=== PATIENT | female | born 1950 | race Caucasian/White ===

== ENCOUNTER 2017-02-02 17:00 | Observation (INO) | payer MEDICAID ==
[~2017-02-02] VITALS: Ht 167.6 cm; Wt 95.5 kg
[~2017-02-02 17:00] MED LIST: AMOXICILLIN 50500 MG PO; CATAPRES0.2 MG PO; COUMADIN 2MG2 MG/TAB PO; CYMBALTA 60MG60 MG; DOXYCYCLINE 10100 MG PO; GLUCOPHAGE1000 MG PO; LOPRESSOR 225 MG/TAB PO; OXYCONTIN 80MG80 MG PO; PRIL40 PO; PRINZIDE 12.5 M1 TA1 PO; ROXICODONE30 MG PO; VITAMIN D 1001000 IU PO; XANAX 0.5MG0.5 MG PO
[2017-02-02 18:14] VITALS: BP 154/59; PULSE 68; TEMP 98
[2017-02-02] MEDS ORDERED: DICLOXACILLIN500 MG PO ×2 (18:25)
[2017-02-02] MEDS ORDERED: LOPRESSOR 550 MG/TAB PO (18:35)
[2017-02-02] MEDS ORDERED: OXYCONTIN30 MG PO (18:37)
[2017-02-02] MEDS ORDERED: OXYCONTIN 80MG80 MG PO (18:40)
[2017-02-02 20:26] VITALS: BP 162/68; PULSE 80; TEMP 98.3
[2017-02-03 00:03] VITALS: BP 165/57; PULSE 63; TEMP 97.9
[2017-02-03 04:18] VITALS: BP 158/58; PULSE 64; TEMP 98.1
[2017-02-03 08:21] VITALS: BP 157/63; PULSE 77; TEMP 98.8
[2017-02-03 10:19] LABS: INR 1.9 (0.8-3.0); PROTHROMBIN TIME 21.4 SECONDS (9.7-12.8)
[2017-02-03 10:24] LABS: BASO % 0.2 % (0.0-2.0); EOS # 0.1 (0.0-0.7); EOS % 0.8 % (0-4.0); GRAN # 7.9 (1.4-6.5); GRAN % 78.2 % (42.2-75.2); HEMATOCRIT 46.9 % (37.0-47.0); LYMPH # 1.6 (1.2-3.4); LYMPH % 16.3 % (20.0-51.0); MEAN CELL VOLUME 91 fl (80.0-100.0); MEAN CORPUSCULAR HEMOGLOBIN 31 pg (27.0-31.0); MEAN CORPUSCULAR HGB CONC 34 g/dl (33.0-37.0); MEAN PLATELET VOLUME 8.8 fl (7.4-10.4); MONO # 0.4 (0.1-0.6); PLATELET COUNT 186 K/mm3 (130-400); RED BLOOD COUNT 5.15 M/mm3 (4.10-5.30); REDCELL DISTRIBUTION WIDTH-CV 12.6 % (11.5-14.5)
[2017-02-03 10:26] LABS: CALCIUM 9.7 mg/dL (8.4-10.2); CREATININE, serum 0.56 mg/dL (0.52-1.25); POTASSIUM 3.2 mmol/L (3.4-5.0)
[2017-02-03 10:37] LABS: TROPONIN-I 0.016 ng/mL (0.000-0.034)
[2017-02-03] MEDS ORDERED: PROCARDIA XL 6060 MG PO (12:12)
[2017-02-03] MEDS ORDERED: ASPIRIN 81M81 MG/TA2 PO (12:12)
[2017-02-03] MEDS ORDERED: HCTZ12.5TAB PO (12:13)
[2017-02-03] MEDS ORDERED: PRINIVIL20 MG PO (12:13)
[2017-02-03] MEDS ORDERED: PRINZIDE 12.5 M1 TA1 PO (12:48)
== END 2017-02-03 13:11 | disposition home or self-care (01) ==
LOC: MEDICAL 17:00
PROVIDERS: Internal Medicine Cardiovascular Disease; Physician Assistant
DX: I20.0 Unstable angina (principal); I10 Essential (primary) hypertension; E87.6 Hypokalemia; E11.9 Type 2 diabetes mellitus without complications; J44.9 Chronic obstructive pulmonary disease, unspecified; F41.8 Other specified anxiety disorders; E66.9 Obesity, unspecified; K21.9 Gastro-esophageal reflux disease without esophagitis; F17.210 Nicotine dependence, cigarettes, uncomplicated; I48.2 Chronic atrial fibrillation; Z79.01 Long term (current) use of anticoagulants
CPT/HCPCS: G0378; G0379

== ENCOUNTER 2017-02-17 06:25 | Day surgery (SDC) | payer MEDICAID ==
[2017-02-17] VITALS (16 sets, daily range): BP systolic 92–157; BP diastolic 59–124; PULSE 65–89; TEMP 97.3–97.8
[~2017-02-17] VITALS: Ht 167.7 cm; Wt 86.3 kg
[~2017-02-17 06:25] MED LIST changes: +ASPIRIN 81M81 MG/TA2 PO; +DICLOXACILLIN500 MG PO; +HCTZ12.5TAB PO; +LOPRESSOR 550 MG/TAB PO; +OXYCONTIN30 MG PO; +PRINIVIL20 MG PO; +PROCARDIA XL 6060 MG PO
[2017-02-17 07:35] LABS: HEMATOCRIT 40.8 % (37.0-47.0); HEMOGLOBIN 13.6 g/dl (12.5-16.0); MEAN CELL VOLUME 93 fl (80.0-100.0); MEAN CORPUSCULAR HEMOGLOBIN 31 pg (27.0-31.0); MEAN CORPUSCULAR HGB CONC 33 g/dl (33.0-37.0); PLATELET COUNT 165 K/mm3 (130-400); RED BLOOD COUNT 4.37 M/mm3 (4.10-5.30); REDCELL DISTRIBUTION WIDTH-CV 12.5 % (11.5-14.5); WHITE BLOOD COUNT 8.5 K/mm3 (4.8-10.8)
[2017-02-17] MEDS ORDERED: LOPRESSOR 225 MG/TAB PO (07:40)
[2017-02-17] MEDS ORDERED: CYMBALTA 30MG30 MG PO (07:42)
[2017-02-17] MEDS ORDERED: COUMADIN 2MG2 MG/TAB PO (07:43)
[2017-02-17 07:46] LABS: CALCIUM 9.7 mg/dL (8.4-10.2); CREATININE, serum 0.67 mg/dL (0.52-1.25); POTASSIUM 3.7 mmol/L (3.4-5.0)
[2017-02-17] MEDS ORDERED: ASPIRIN 81M81 MG/TA2 PO (07:46)
[2017-02-17 07:51] LABS: INR 1.1 (0.8-3.0); PROTHROMBIN TIME 12.5 SECONDS (9.7-12.8)
== END 2017-02-17 17:16 | disposition home or self-care (01) ==
LOC: COL.CAR 06:25
PROVIDERS: Internal Medicine Cardiovascular Disease
DX: R07.89 Other chest pain (principal); I10 Essential (primary) hypertension; E11.9 Type 2 diabetes mellitus without complications; J44.9 Chronic obstructive pulmonary disease, unspecified
CPT/HCPCS: C1769; C1887; C1894; J2250; J3010; Q9967